=== PATIENT | male | born 1940 | race Caucasian/White ===

== ENCOUNTER 2016-08-20 15:52 | Inpatient (IN) | payer OTHER ==
[2016-08-20] MEDS ORDERED: Sodium Chloride 0.9% 1,000 ML PRIMARY IV ONE (16:24)
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
[2016-08-20 16:56] LABS: BASOPHILS # (AUTO) 0.03 10*3/UL; BASOPHILS % (AUTO) 0.3 % (0-1); EOSINOPHILS % (AUTO) 0.4 % (0-8); HEMOGLOBIN 13.5 g/dL (14.0-18.0); IMM GRAN % (AUTO) 0.8 % (0-5); IMM GRAN# (AUTO) 0.07 10*3/UL; LYMPHOCYTES # (AUTO) 1.15 10*3/uL; LYMPHOCYTES % (AUTO) 12.8 % (10-50); MEAN CORPUSCULAR HEMOGLOBIN 32.2 PG (27-31); MEAN CORPUSCULAR HGB CONC 33.8 g/dL (33-37); MEAN PLATELET VOLUME 8.7 FL (7.4-12.2); MONOCYTES # (AUTO) 1.22 10*3/UL (0.3-0.8); MONOCYTES % (AUTO) 13.6 % (5-15); NEUTROPHILS # (AUTO) 6.45 10*3/UL; NEUTROPHILS % (AUTO) 72.1 % (50-80); RDW COEFFICIENT OF VARIATION 16.5 % (11.5-14.5); RED BLOOD COUNT 4.19 10^6/uL (4.70-6.10); WHITE BLOOD COUNT 8.96 10^3/uL (4.8-10.8)
[2016-08-20 17:01] LABS: PLATELET MORPHOLOGY COMMENT NORMAL MORPHOLOGY (NORM)
[2016-08-20 17:09] LABS: ASPARTATE AMINO TRANSFERASE 26 IU/L (21-57); BILIRUBIN,TOTAL 1.5 mg/dL (0.3-1.2); BLOOD UREA NITROGEN 15 mg/dL (7-22); BUN/CREATININE RATIO 21.42 (6-20); C-REACTIVE PROTEIN 3.2 mg/dL (0.0-0.9); CALCIUM 8.7 mg/dL (8.7-10.7); CHLORIDE 99 meq/L (98-112); CREATININE 0.7 mg/dL (0.70-1.50); GLUCOSE 99 mg/dL (78-110); MAGNESIUM 1.5 mg/dL (1.6-2.4); POTASSIUM 3.6 meq/L (3.8-5.2); SODIUM 136 meq/L (135-145); TOTAL PROTEIN 6.6 g/dL (6.1-8.0)
--- NOTE | 2016-08-20 17:13 | EKG ---
[address] [place] [id number] Measurements Intervals [place] Rate: 93 P: 64 [place]: 231 QRS: -46 QRSD: 127 T: 90 QT: 386 QTc: 436 Interpretive Statements SINUS RHYTHM WITH FIRST DEGREE AV BLOCK WITH PREMATURE VENTRICULAR COMPLEXES LEFT ATRIAL ENLARGEMENT POSSIBLE ANTERIOR MYOCARDIAL INFARCTION, , OF INDETERMINATE AGE INFERIOR MYOCARDIAL INFARCTION, OF INDETERMINATE AGE Compared to ECG 02/12/2016 08:32:54 Ventricular premature complex(es) now present Myocardial infarct finding still present Electronically Signed On 08-21-16 19:39:58 [facility] by Keaton Duffy [email or web address]
[2016-08-20 17:16] LABS: NT-PRO BNP 2540 PG/ML (0-450)
[2016-08-20 17:18] LABS: SERUM ALCOHOL < 10 mg/dL (0-10)
[2016-08-20 17:23] LABS: FREE T4 (FREE THYROXINE) 1.24 ng/dL (0.93-1.71)
[2016-08-20 17:50] LABS: ERYTHROCYTE SEDIMENTATION RATE 2 MM/HR (0-15)
--- NOTE | 2016-08-20 17:53 | DI ---
HISTORY: Altered mental statis. TECHNIQUE: Contiguous axial images of the brain were obtained and submitted for interpretation. FINDINGS: There is moderate senescent change. There is no intracranial hemorrhage, mass effect, hyd rocephalus, or significant midline shift. The basal cisterns are not effaced. There appears to be d olichoectasia of the vertebrobasilar system. 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 There is no acute territorial infarct. The visualized paranasal sinuses and mastoids appear relatively well-aerated. There is modest mucosa l thickening. IMPRESSION: 1. Moderate senescent changes without acute intracranial hemorrhage. 2. Left pthsis bulbi.
[2016-08-20 18:19] LABS: BILIRUBIN,URINE NEGATIVE (NEG); CLARITY,URINE CLEAR (CLEAR); GLUCOSE, URINE (UA) NEGATIVE (NEG); LEUKOCYTE ESTERASE ,URINE NEGATIVE (NEG); NITRATE,URINE NEGATIVE (NEG); OCCULT BLOOD,URINE NEGATIVE (NEG); PH,URINE 5.5 (5.0-8.5); PROTEIN,URINE NEGATIVE (NEG)
[2016-08-20 18:21] LABS: URINE SAMPLE TYPE CLEAN CATCH URINE; URINE SPECIFIC GRAVITY - MAN 1.012
[2016-08-20] MEDS ORDERED: Magnesium Sulfate 2gm (Premix) 2 GM in Premix 1 BAG IV ONE ×3 (18:27→21:21)
[2016-08-20 18:40] LABS: CANNABINOID SCREEN,URINE NEGATIVE (NEG); COCAINE SCREEN NEGATIVE (NEG); METHAMPHETAMINES SCREEN,URINE NEGATIVE (NEG)
[2016-08-20] MEDS ORDERED: Cefepime Inj 2 GM in Sodium Chloride 0.9% 100 ML IV ONE (19:51)
[2016-08-20] MEDS ORDERED: NORMAL SALINE 10 ML SYRINGE FLUSH IVP PRN ×2 (19:55→21:21)
[2016-08-20] MEDS ORDERED: BISACODYL 5 MG TABLET PO PRN ×2 (19:55→21:21)
[2016-08-20] MEDS ORDERED: HYDROcodone-APAP 5 MG -325 MG TABLET PO PRN (19:55)
[2016-08-20] MEDS ORDERED: ONDANSETRON 4 MG/2 ML VIAL IVP PRN ×2 (19:55→21:21)
[2016-08-20] MEDS ORDERED: Sodium Chloride 0.9% 1,000 ML PRIMARY IV SCH (20:00)
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
--- NOTE | 2016-08-20 21:58 | DI ---
HISTORY: Cough. TECHNIQUE: Contiguous axial images of the chest were obtained and submitted for interpretation. FINDINGS: There is bilateral gynecomastia. There is no axillary or hilar adenopathy. Slightly prominent mediastinal nodes are present. Some of them contain fatty centers (series 2, image 39). There is cardiomegaly. There is coronary artery calcification. There are bilateral tiny pleural effusions. There is no pericardial effusion. The trachea, main, an d segmental bronchi demonstrate no endobronchial lesions. There is thickening of the left oblique fi ssure. There are scattered pulmonary cysts. There is consolidation in the lower lobes bilaterally, which could be due to early infection, scarring, fibrosis, or atelectasis. The visualized sections of the upper abdomen demonstrate no acute findings. There is no focal adrena l mass. The GE junction is thickened. The visualized osseous structures demonstrate no destructive abnormality. There are fractures of the posterior right ninth through eleventh ribs. There is lower cervical spine ACDF. This is partiall y imaged IMPRESSION: 1. Cardiomegaly with coronary artery calcification. 2. Tiny pleural effusions bilaterally. 3. Bilateral lower lobe consolidation could represent early infection, scarring, fibrosis or atelecta sis. 4. Fractured posterior right ninth through eleventh ribs. NOTIFICATION: The above findings were phoned to Shekhar Forde in the ER Department on 08/21/2016 at 12: 00am EST.
[2016-08-20] MEDS: FUROSEMIDE 40 MG TABLET PO SCH (22:55)
[2016-08-20] MEDS: LISINOPRIL 5 MG TABLET PO SCH (22:57)
[2016-08-20] MEDS: PANTOPRAZOLE 40 MG TABLET PO SCH (22:57)
[2016-08-20] MEDS: CARVEDILOL 6.25 MG TABLET PO SCH (22:58)
[2016-08-20] MEDS: POTASSIUM CHLORIDE 20 MEQ TAB PO SCH (22:58)
[2016-08-20] MEDS: GABAPENTIN 300 MG CAPSULE PO SCH (23:07)
[2016-08-21] MEDS ORDERED: Levofloxacin 750mg (Premix) 750 MG in Dextrose 1 BAG IV SCH
[2016-08-21] MEDS: HYDROcodone-APAP 5 MG -325 MG TABLET PO PRN ×3 (03:48→16:01)
[2016-08-21 05:45] LABS: BASOPHILS # (AUTO) 0.04 10*3/UL; BASOPHILS % (AUTO) 0.4 % (0-1); EOSINOPHILS % (AUTO) 0.1 % (0-8); HEMATOCRIT 38.6 % (42.0-52.0); HEMOGLOBIN 12.7 g/dL (14.0-18.0); IMM GRAN % (AUTO) 0.6 % (0-5); IMM GRAN# (AUTO) 0.07 10*3/UL; LYMPHOCYTES # (AUTO) 1.17 10*3/uL; LYMPHOCYTES % (AUTO) 10.9 % (10-50); MEAN CORPUSCULAR HEMOGLOBIN 31.2 PG (27-31); MEAN CORPUSCULAR HGB CONC 32.9 g/dL (33-37); MEAN PLATELET VOLUME 8.6 FL (7.4-12.2); MONOCYTES # (AUTO) 1.38 10*3/UL (0.3-0.8); MONOCYTES % (AUTO) 12.8 % (5-15); NEUTROPHILS # (AUTO) 8.11 10*3/UL; NEUTROPHILS % (AUTO) 75.2 % (50-80); RDW COEFFICIENT OF VARIATION 16.9 % (11.5-14.5); RED BLOOD COUNT 4.07 10^6/uL (4.70-6.10); WHITE BLOOD COUNT 10.78 10^3/uL (4.8-10.8)
[2016-08-21 05:51] LABS: BUN/CREATININE RATIO 21.42 (6-20); CALCIUM 8.4 mg/dL (8.7-10.7); CREATININE 0.7 mg/dL (0.70-1.50); POTASSIUM 3.6 meq/L (3.8-5.2)
[2016-08-21] MEDS: LEVOTHYROXINE 100 MCG TABLET PO SCH (05:53)
[2016-08-21] MEDS: POTASSIUM CHLORIDE 20 MEQ TAB PO SCH ×2 (06:40→16:02)
[2016-08-21] MEDS: PANTOPRAZOLE 40 MG TABLET PO SCH (06:40)
[2016-08-21 08:01] LABS: PLATELET MORPHOLOGY COMMENT NORMAL MORPHOLOGY (NORM)
[2016-08-21] MEDS: FUROSEMIDE 40 MG TABLET PO SCH ×2 (08:33→16:01)
[2016-08-21] MEDS: LISINOPRIL 5 MG TABLET PO SCH (08:33)
[2016-08-21] MEDS: CLOPIDOGREL 75 MG TABLET PO SCH (08:33)
[2016-08-21] MEDS: GABAPENTIN 300 MG CAPSULE PO SCH ×3 (08:33→20:20)
[2016-08-21] MEDS: CARVEDILOL 6.25 MG TABLET PO SCH ×2 (08:33→20:21)
[2016-08-21] MEDS: ASPIRIN EC 81 MG TABLET PO SCH (08:33)
[2016-08-21 11:50] LABS: MAGNESIUM 2.3 mg/dL (1.6-2.4)
[2016-08-21] MEDS ORDERED: FUROSEMIDE 10 MG/1 ML - 4 ML IVP ONE (11:57)
--- NOTE | 2016-08-21 12:04 | PDOC(PROG) ---
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 fib V. tach he was taken off his dig and put on Coumadin the daughter and the patient said that the Coumadin is very hard for him to manage with the fingersticks and would like some other options I suggested he go on Eliquis I' ve explained the side effects and that there are no reversal for anticoagulation unlike the Coumadin he understands and agrees and would like to try it they're also like for me to check if it is covered by Medicare with the social work manager and let Dr. painter know as well Objective : Data - Labs CBC and BMP: 08/21/16 05:37 08/21/16 05:37 Labs - Last 24 Hours: Laboratory Results 08/21/16 Range/Units 05:37 WBC 10.78 (4.8-10.8) 10^3/uL RBC 4.07 L (4.70-6.10) 10^6/uL Hgb 12.7 L (14.0-18.0) g/dL Hct 38.6 L (42.0-52.0) % MCV 94.8 H (80-90) FL MCH 31.2 H (27-31) PG MCHC 32.9 L (33-37) g/dL RDW Std Deviation 56.4 H (39-50) fL RDW Coeff of [place] 16.9 H (11.5-14.5) % Plt Count 318 (140-350) 10*3/uL MPV 8.6 (7.4-12.2) FL Immature Gran % (Auto) 0.6 (0-5) % Neut % (Auto) 75.2 (50-80) % Lymph % (Auto) 10.9 (10-50) % [place] % (Auto) 12.8 (5-15) % Eos % (Auto) 0.1 (0-8) % Baso % (Auto) 0.4 (0-1) % Immature Gran # (Auto) 0.07 10*3/UL Neut # (Auto) 8.11 10*3/UL Lymph # (Auto) 1.17 10*3/uL [place] # (Auto) 1.38 H (0.3-0.8) 10*3/UL Eos # (Auto) 0.01 10*3/UL Baso # (Auto) 0.04 10*3/UL WBC Morphology Comment Normal morphology (NORM) Plt Morphology Comment Normal morphology (NORM) RBC Morph Comment Normal morphology (NORM) Sodium 137 (135-145) meq/L Potassium 3.6 L (3.8-5.2) meq/L Chloride 102 (98-112) meq/L Carbon Dioxide 25 (23-33) meq/L Anion Gap 10 (5-20) BUN 15 (7-22) mg/dL Creatinine 0.7 (0.70-1.50) mg/dL Estimated GFR (>60 ml/min/1.73m(2)) BUN/Creatinine Ratio 21.42 H (6-20) Glucose 108 (78-110) mg/dL Calculated Osmolality 285.0 (267-292) mOsm/kg Calcium 8.4 L (8.7-10.7) mg/dL Magnesium 2.3 (1.6-2.4) mg/dL NT-Pro-B Natriuret Pep 3140 H (0-450) PG/ML Objective : Exam - General General Appearance: Cooperative - Head Head Exam: Normal Inspection - Neck Neck Exam: Normal Inspection - Respiratory Respiratory Exam: Clear to Auscultation - Bilaterally, Breathing Non Labored - Cardiovascular Cardiovascular Exam: RRR, No Murmur, No Clicks - GI/Abdominal GI/Abdominal Exam: Normal Bowel Sounds, Non Distended, Soft Assessment and Plan - Patient Problems (1) Pneumonia Current Visit: Yes Status: Acute Comment: Levaquin 750 patient is allergic to penicillins (2) Altered mental status Current Visit: Yes Status: Acute Comment: Most likely secondary to pneumonia I will also do an MRI of his head tomorrow (3) Dehydration Current Visit: No Status: Acute Comment: Patient was rehydrated (4) Fever Current Visit: Yes Status: Acute Comment: Secondary to pneumonia (5) Hypomagnesemia Current Visit: Yes Status: Acute (6) Hypokalemia Current Visit: Yes Status: Acute Comment: Replaced (7) Atrial fibrillation Current Visit: Yes Status: Acute Comment: Continue current meds we will start Eliquis for anticoagulation would not like to take Coumadin anymore
[2016-08-21] MEDS ORDERED: Magnesium Sulfate 2gm (Premix) 2 GM in Premix 1 BAG IV ONE (13:07)
[2016-08-21 13:11] LABS: PROTHROMBIN TIME 14.4 secs (9.7-11.4)
--- NOTE | 2016-08-21 14:19 | DI ---
AP CHEST X-RAY, 08/20/2016 5:11 PM : Clinical History: Acute mental status change. Previous Exam: . On this view, the patient took a very shallow inspiration. There is no acute soft tissue or bony abno rmality. There is cardiomegaly. The heart has a "globular" configuration suggesting either a cardiomy opathy or a pericardial effusion. The shallow inspiratory effort makes evaluation of CHF difficult ra diographically. Lungs are clear. Mediastinal structures are normal. There are no pulmonary nodules. Readin. There is no acute infiltrate or effusion. 2. Cardiomegaly with a "globular" configuration suggesting either a cardiomyopathy or a pericardial effusion. Assessment of presence or absence of CHF is difficult radiographically because of the shall ow inspiratory effort.
[2016-08-21] MEDS: Apixaban 5 MG TABLET PO SCH (20:21)
[2016-08-21] MEDS ORDERED: ATORVASTATIN 40 MG TABLET PO SCH (21:00)
[2016-08-22] MEDS ORDERED: Levofloxacin 750mg (Premix) 750 MG in Dextrose 1 BAG IV SCH (03:00)
[2016-08-22] MEDS: LEVOTHYROXINE 100 MCG TABLET PO SCH (05:38)
[2016-08-22 07:09] LABS: BILIRUBIN,TOTAL 1.3 mg/dL (0.3-1.2); BUN/CREATININE RATIO 28.57 (6-20); CALCIUM 8.8 mg/dL (8.7-10.7); CREATININE 0.7 mg/dL (0.70-1.50); POTASSIUM 4.1 meq/L (3.8-5.2); TOTAL PROTEIN 6.2 g/dL (6.1-8.0)
[2016-08-22] MEDS: POTASSIUM CHLORIDE 20 MEQ TAB PO SCH (07:13)
[2016-08-22] MEDS: PANTOPRAZOLE 40 MG TABLET PO SCH (07:13)
[2016-08-22] MEDS: HYDROcodone-APAP 5 MG -325 MG TABLET PO PRN (07:14)
[2016-08-22 08:12] VITALS: RESP 18; TEMP 97
[2016-08-22] MEDS: CLOPIDOGREL 75 MG TABLET PO SCH (08:29)
[2016-08-22] MEDS: Apixaban 5 MG TABLET PO SCH (08:29)
[2016-08-22] MEDS: FUROSEMIDE 40 MG TABLET PO SCH (08:29)
[2016-08-22] MEDS: GABAPENTIN 300 MG CAPSULE PO SCH (08:29)
[2016-08-22] MEDS: ASPIRIN EC 81 MG TABLET PO SCH (08:29)
[2016-08-22] MEDS: CARVEDILOL 6.25 MG TABLET PO SCH (08:29)
[2016-08-22] MEDS: LISINOPRIL 5 MG TABLET PO SCH (08:30)
[2016-08-22] MEDS ORDERED: Pregabalin Cap 150mg capsule PO SCH (09:00)
--- NOTE | 2016-08-22 09:03 | DI ---
MRI BRAIN SCAN WITHOUT CONTRAST, 08/22/2016 7:00 AM: Clinical History: Altered mental status. Previous Exam: None at this facility. Sequences: Sagittal T1; Axial PRISCILLA T2 and FLAIR. Axial diffusion weighted images with ADC mapping were also performed. The 4th, 3rd, and lateral ventricles are of normal size, shape, position, and contour for this patien t's age. There is a single punctate hyperintense 4 mm lesion located in the white matter of the right frontal lobe and the significance of this isolated finding is uncertain. There is a 7 x 10 x 10 mm h yperintense lesion on the T2 weighted and FLAIR sequences and it is of intermediate signal intensity on the T1-weighted sequence. The infundibulum is not well demonstrated either on the sagittal or the axial scans. This presumed cystic lesion has proteinaceous material within it and lies to the right o f midline. It does not encroach on the optic chiasm and does not displace the cavernous carotid arter ies. The pituitary gland is displaced posteriorly and laterally on the right side. No calcifications are identified. The differential would be between a Rathke's cleft cyst versus a craniopharyngioma. A pre-and postcontrast high-resolution study of the sella turcica may be able to differentiate between the 2 possibilities. There is mild cerebellar and moderate cerebral atrophy. Diffusion weighted imag ing with ADC mapping is normal. There are no extracerebral mantels or shift of the midline structures . The paranasal sinuses are normal. Readin. No abnormalities of the brain parenchyma of the cerebellum, cerebrum, or brainstem are present to explain the patient's clinical presentation. There is mild cerebellar and moderate cerebral atrophy. 2. There is a 7 x 10 x 10 mm cystic appearing lesion in the right side of the sella turcica without obvious calcification and without impingement on the optic chiasm or the cavernous carotid arteries. 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 A pre-and postcontrast high resolution thin slice study of the sella turcica may be used to differentiate between the 2 possibilities.
[2016-08-22 11:29] LABS: HEMOGLOBIN A1C 5.39 % (4.2-6.0); MEAN BLOOD GLUCOSE (CALC) 93.487 mg/dL
--- NOTE | 2016-08-22 11:36 | DCSUMMARY ---
Hospitalization Summary Hospital Course: Final Discharge Diagnosis: Current Visit Problems Problem Status Priority Diagnosed Code Altered mental status Acute R41.82 Atrial fibrillation Acute I48.91 Dehydration Acute E86.0 Fever Acute R50.9 Fever in adult Acute R50.9 Hypokalemia Acute E87.6 Hypomagnesemia Acute E83.42 Pneumonia Acute J18.9 Rib fracture Acute S22.39XA Diagnostic Data, Laboratory Data, and Procedures of Signifigance: Laboratory Results 08/20/16 08/20/16 08/21/16 Range/Units 16:45 18:10 05:37 WBC 8.96 10.78 (4.8-10.8) 10^3/uL RBC 4.19 L 4.07 L (4.70-6.10) 10^6/uL Hgb 13.5 L 12.7 L (14.0-18.0) g/dL Hct 40.0 L 38.6 L (42.0-52.0) % MCV 95.5 H 94.8 H (80-90) FL MCH 32.2 H 31.2 H (27-31) PG MCHC 33.8 32.9 L (33-37) g/dL RDW Std Deviation 56.3 H 56.4 H (39-50) fL RDW Coeff of [place] 16.5 H 16.9 H (11.5-14.5) % Plt Count 340 318 (140-350) 10*3/uL MPV 8.7 8.6 (7.4-12.2) FL Immature Gran % (Auto) 0.8 0.6 (0-5) % Neut % (Auto) 72.1 75.2 (50-80) % Lymph % (Auto) 12.8 10.9 (10-50) % Ramsey % (Auto) 13.6 12.8 (5-15) % Eos % (Auto) 0.4 0.1 (0-8) % Baso % (Auto) 0.3 0.4 (0-1) % Immature Gran # (Auto) 0.07 0.07 10*3/UL Neut # (Auto) 6.45 8.11 10*3/UL Lymph # (Auto) 1.15 1.17 10*3/uL Ramsey # (Auto) 1.22 H 1.38 H (0.3-0.8) 10*3/UL Eos # (Auto) 0.04 0.01 10*3/UL Baso # (Auto) 0.03 0.04 10*3/UL WBC Morphology Comment Normal morphology Normal morphology (NORM) Plt Morphology Comment Normal morphology Normal morphology (NORM) RBC Morph Comment Normal morphology Normal morphology (NORM) ESR 2 (0-15) MM/HR PT (9.7-11.4) secs INR (0.00-5.90) N/A Sodium 136 137 (135-145) meq/L Potassium 3.6 L 3.6 L (3.8-5.2) meq/L Chloride 99 102 (98-112) meq/L Carbon Dioxide 28 25 (23-33) meq/L Anion Gap 9 10 (5-20) BUN 15 15 (7-22) mg/dL Creatinine 0.7 0.7 (0.70-1.50) mg/dL Estimated GFR (>60 ml/min/1.73m(2)) BUN/Creatinine Ratio 21.42 H 21.42 H (6-20) Glucose 99 108 (78-110) mg/dL Calculated Osmolality 282.0 285.0 (267-292) mOsm/kg Calcium 8.7 8.4 L (8.7-10.7) mg/dL Magnesium 1.5 L 2.3 (1.6-2.4) mg/dL Total Bilirubin 1.5 H (0.3-1.2) mg/dL AST 26 (21-57) IU/L ALT 23 (21-72) IU/L Alkaline Phosphatase 60 (38-126) IU/L Troponin I < 0.012 (< 0.040) ng/mL C-Reactive Protein 3.2 H (0.0-0.9) mg/dL NT-Pro-B Natriuret Pep 2540 H 3140 H (0-450) PG/ML Total Protein 6.6 (6.1-8.0) g/dL Albumin 4.0 (3.5-4.8) g/dL Globulin 2.7 (2.50-4.10) g/dL Albumin/Globulin Ratio 1.40 (1.3-2.0) mg/g TSH 0.845 (0.2700-4.2000) uIU/mL Free T4 1.24 (0.93-1.71) ng/dL Ur Collection Type Clean catch urine Urine Color Yellow Urine Clarity Clear (CLEAR) Urine pH 5.5 (5.0-8.5) Ur Specific [place] <=1.005 (1.005-1.030) U Specif Grav (Refrac) 1.012 Urine Protein Negative (NEG) mg/dl Urine Glucose (UA) Negative (NEG) mg/dL Urine Ketones Negative (NEG) Urine Occult Blood Negative (NEG) Urine Nitrate Negative (NEG) Urine Bilirubin Negative (NEG) Urine Urobilinogen 1.0 (0.2) EU/dL Ur Leukocyte Esterase Negative (NEG) Ur Culture Indicated? Culture not set Urine Opiates Screen Negative (NEG) Ur Buprenorphine Negative (NEG) Ur Oxycodone Screen Negative (NEG) Urine Methadone Screen Negative (NEG) Ur Propoxyphene Screen Negative (NEG) Barbiturate Screen Negative (NEG) U Tricyclic Antidepress Negative (NEG) Phencyclidine Screen Negative (NEG) Amphetamines Screen Negative (NEG) U Methamphetamines Scrn Negative (NEG) Benzodiazepines Screen Negative (NEG) Cocaine Screen Negative (NEG) U Marijuana (THC) Screen Negative (NEG) Serum Alcohol < 10 (0-10) mg/dL 08/21/16 08/22/16 Range/Units 13:00 06:52 WBC (4.8-10.8) 10^3/uL RBC (4.70-6.10) 10^6/uL Hgb (14.0-18.0) g/dL Hct (42.0-52.0) % MCV (80-90) FL MCH (27-31) PG MCHC (33-37) g/dL RDW Std Deviation (39-50) fL RDW Coeff of [place] (11.5-14.5) % Plt Count (140-350) 10*3/uL MPV (7.4-12.2) FL Immature Gran % (Auto) (0-5) % Neut % (Auto) (50-80) % Lymph % (Auto) (10-50) % Ramsey % (Auto) (5-15) % Eos % (Auto) (0-8) % Baso % (Auto) (0-1) % Immature Gran # (Auto) 10*3/UL Neut # (Auto) 10*3/UL Lymph # (Auto) 10*3/uL [place] # (Auto) (0.3-0.8) 10*3/UL Eos # (Auto) 10*3/UL Baso # (Auto) 10*3/UL WBC Morphology Comment (NORM) Plt Morphology Comment (NORM) RBC Morph Comment (NORM) ESR (0-15) MM/HR PT 14.4 H (9.7-11.4) secs INR 1.39 (0.00-5.90) N/A Sodium 137 (135-145) meq/L Potassium 4.1 (3.8-5.2) meq/L Chloride 104 (98-112) meq/L Carbon Dioxide 26 (23-33) meq/L Anion Gap 7 (5-20) BUN 20 (7-22) mg/dL Creatinine 0.7 (0.70-1.50) mg/dL Estimated GFR (>60 ml/min/1.73m(2)) BUN/Creatinine Ratio 28.57 H (6-20) Glucose 89 (78-110) mg/dL Calculated Osmolality 285.0 (267-292) mOsm/kg Calcium 8.8 (8.7-10.7) mg/dL Magnesium (1.6-2.4) mg/dL Total Bilirubin 1.3 H (0.3-1.2) mg/dL AST 17 L (21-57) IU/L ALT 22 (21-72) IU/L Alkaline Phosphatase 48 (38-126) IU/L Troponin I (< 0.040) ng/mL C-Reactive Protein (0.0-0.9) mg/dL NT-Pro-B Natriuret Pep (0-450) PG/ML Total Protein 6.2 (6.1-8.0) g/dL Albumin 3.5 (3.5-4.8) g/dL Globulin 2.7 (2.50-4.10) g/dL Albumin/Globulin Ratio 1.20 L (1.3-2.0) mg/g TSH (0.2700-4.2000) uIU/mL Free T4 (0.93-1.71) ng/dL Ur Collection Type Urine Color Urine Clarity (CLEAR) Urine pH (5.0-8.5) Ur Specific [place] (1.005-1.030) U Specif Grav (Refrac) Urine Protein (NEG) mg/dl Urine Glucose (UA) (NEG) mg/dL Urine Ketones (NEG) Urine Occult Blood (NEG) Urine Nitrate (NEG) Urine Bilirubin (NEG) Urine Urobilinogen (0.2) EU/dL Ur Leukocyte Esterase (NEG) Ur Culture Indicated? Urine Opiates Screen (NEG) Ur Buprenorphine (NEG) Ur Oxycodone Screen (NEG) Urine Methadone Screen (NEG) Ur Propoxyphene Screen (NEG) Barbiturate Screen (NEG) U Tricyclic Antidepress (NEG) Phencyclidine Screen (NEG) Amphetamines Screen (NEG) U Methamphetamines Scrn (NEG) Benzodiazepines Screen (NEG) Cocaine Screen (NEG) U Marijuana (THC) Screen (NEG) Serum Alcohol (0-10) mg/dL Course of Hospitalization: This very nice 76-year-old gentleman with past medical history significant for COPD, coronary artery disease post stent and angioplasty most recent stent was placed in September 2015, ischemic cardiomyopathy with EF less than 30% prior to stenting, hypothyroidism, hypertension, osteoarthritis of hips and knees and shoulders was admitted to the hospital here because of an episode of altered mental status where he drove himself from [place] to [employer] to visit a friend he subsequently ran into a fence at the [employer] is friend picked them up there and brought him home he took a nap in his house and then took him to the emergency room in the emergency room he was a alert and oriented 3 when I saw the patient he improved the throughout his hospital stay and is back to his normal self CT scan of his chest revealed bilateral pulmonary infiltrates most likely consistent with pneumonia considering he told me he had some bit of a cough for a couple days and a fever was no white count. He was treated with the IV Levaquin and now by mouth Levaquin patient is allergic to penicillin he will have a prescription for a total of 5 more days of 750 of Levaquin. I had a long discussion with him her daughter about anticoagulation and different side effects I've also inquired through social service about his co-pay for new medication like Eliquis both his daughter and himself stated that this would probably fit them better but I will have to clear with Dr. 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 I did talk to Dr. painter and he had an absolutely no problem with it and he is okay with this change also I called the Lisa his primary care physician's nurse and also explained the situation and made an appointment for him. His co-pay will be $46 according to the social media strategist I talked to Kenny about this and he said he had no problem with this amount. I told him that he can further discuss this with primary care physician and if needed B could always go back on Coumadin. I believe that his confusion was probably multifactorial maybe from the initial stages of pneumonia patient is also on oxycodone Zanaflex and tramadol discomfort located differently. Platelet arrival as well I told him to stop the Zanaflex and oxycodone he has not taken while here in the hospital and his dad doing fine with it. He does not complain of any chest pain or back pain while in the hospital. I also called his daughter Rosaura cervantes at [phone] updated on the plan above and she agrees. Past Medical History Medical History: Coronary artery disease status post stent and angioplasty, most recent stents placed in September,. Ischemic cardiomyopathy, with ejection fraction less than 30% prior to stent placement. The plan at this point is to repeat echocardiogram in 2-3 months and reevaluate for possible AICD. hypothyroidism, hypertension, obesity, osteoarthritis knees hips and shoulders, tobacco abuse, GERD, Massey's esophagitis, chronic low backpain, hyperlipidemia, idiopathic peripheral neuropathy, history of eye cancer with left eye removed, left heart failure, [place], peptic ulcer and upper GI bleeding x3. Surgical History: Knee scopes and shoulder scopes, cholecystectomy, angioplasty and coronary stents, umbilical hernia repair, multiple cysts excised. Multiple upper and lower endoscopies. Last recorded upper endoscopy was in 2011. Last documented colonoscopy was in May of 2011. Left eye enucleation. Vasectomy. Vertebral, cervical, fusion. Hydrocele repair. Pertinent Family History: Significant for significant for cancer in his mother and aneurysm in his father. 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 smokes and drinks socially Tobacco Use: Former Smoker Do you dip or chew tobacco: No Substance Use Type: None On the date of discharge, the patient was examined: Gen.: No acute distress, alert, nontoxic Heart: Regular rate and rhythm, no murmurs, clicks, gallops, or rubs Lungs: Clear to auscultation bilaterally, breathing is nonlabored Abdomen/GI: Normal tones on auscultation, soft, nontender, nondistended Musculoskeletal/extremities: No clubbing, cyanosis, or edema Vitals reviewed and are listed below Vital Signs (24 hrs) Temp Pulse Pulse Resp BP Pulse Ox 08/22/16 08:10 97 F 72 18 94/61 95 08/22/16 07:23 88 20 08/22/16 07:00 71 08/22/16 04:52 93 08/22/16 04:18 98.9 F 81 20 106/68 93 08/22/16 03:00 84 08/22/16 00:27 99.1 F 75 24 126/71 97 08/21/16 23:00 77 08/21/16 20:19 99.2 F 71 20 97/59 96 08/21/16 19:00 70 77 20 08/21/16 17:00 99.3 F 79 18 96/56 97 08/21/16 15:00 73 08/21/16 13:00 97.8 F 74 20 94/54 100 Assessment and Plan: 1. As per discharge assessments above 2. Disposition: Home 3. Condition on discharge, stable and improved. 4. Diet: regular diet 5. Activities: Do not drive until seen by primary care physician which the patient has an appointment on Monday which we've made here at 11:15 at [facility] 6. Follow-Up: 1. PCP 2. 7. Medications at the Time of Discharge: 8. Time, care, counseling and coordination of care for this discharge is greater than 30 minutes. Exam - Vitals Vital Signs: Vital Signs Temperature 97 F Temperature Source Temporal Artery Scan Pulse Rate [Pulse Oximeter] 72 Pulse Rate 71 Respiratory Rate 18 Blood Pressure [Right Arm] 94/61 Blood Pressure 114/76 Pulse Ox 95 Oxygen Flow Rate 2.5 Oxygen Delivery Method Nasal Cannula Height 6 ft Weight 102.421 kg Patient Problems - Patient Problem List (1) Pneumonia Current Visit: Yes Status: Acute (2) Altered mental status Current Visit: Yes Status: Acute (3) Dehydration Current Visit: No Status: Acute (4) Fever Current Visit: Yes Status: Acute (5) Hypomagnesemia Current Visit: Yes Status: Acute (6) Hypokalemia Current Visit: Yes Status: Acute (7) Atrial fibrillation Current Visit: Yes Status: Acute
== END 2016-08-22 12:02 | disposition home or self-care (01) | DRG 194 ==
LOC: ER 15:52 → MED/SURG 19:49 → OBSVTOIN 19:49 → INTOOBSV 19:49
PROVIDERS: ADMIT Internal Medicine; ATTEND Internal Medicine
DX: J18.8 Other pneumonia, unspecified organism (principal); M84.48XA Pathological fracture, other site, initial encounter for fracture; R41.82 Altered mental status, unspecified; E86.0 Dehydration; R50.9 Fever, unspecified; E83.42 Hypomagnesemia; E87.6 Hypokalemia; I48.91 Unspecified atrial fibrillation; J44.9 Chronic obstructive pulmonary disease, unspecified; V89.0XXA Person injured in unspecified motor-vehicle accident, nontraffic, initial encounter
CPT/HCPCS: 36415; 70450; 70551; 71010; 71260; 80048; 80053; 80305; 80320; 81003; 83036; 83735; 83880; 84439; 84443; 84484; 85025; 85610; 85652; 86140; 87040; 93005; 93010; 94761; 96365; 99285; J1940; J3370; J3475; J7030; J7040